=== PATIENT | male | born 1980 | race Caucasian/White ===

== ENCOUNTER 2018-10-10 15:41 | Emergency (ER) | payer OTHER, SELFPAY ==
[2018-10-10 15:44] VITALS: BP 120/92; PULSE 55; RESP 14; TEMP 36.7; O2SAT 98
--- NOTE | 2018-10-10 15:54 | ED.GENADUL_ITS ---
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 Denies hitting head or falling. Has a 1cm superficial skin tear of the right distal thumb just inferior to the nailbed. Bleeding crontrolled prior to arrival, has full rom and sensation intact. Closed with dermabond, will d/c home Differential Diagnosis abrasion, lac HPI General Mode of arrival: ambulatory . Date/Time Provider Initiated Documentation: 10/10/18 15:44 . Limitations to Documentation: no limitations . Information obtained by: patient . History of Present Illness 38 year old M presents to the emergency department with the chief complaint of right thumb injury, described as moderate, and is localized to the right and upper extremity. Patient reports no radiation. and it has been constant. Rest improves symptom(s), Movement worsens symptoms . Patient notes no other symptoms.. Related Data Home Medications Medication Instructions Recorded Confirmed Unknown [No Known Home Meds] 01/22/13 10/10/18 Allergies Allergy/AdvReac Type Severity Reaction Status Date / Time Penicillins Allergy Anaphylaxsi Unverified 10/10/18 15:47 s General Stated Complaint: Laceration SARWAT: 4 Review of Systems Review of Systems All systems reviewed & are unremarkable except as noted in HPI and below Constitutional Denies chills and Denies fever(s) Cardiovascular Denies dyspnea Respiratory Denies cough and Denies dyspnea Gastrointestinal Denies abdominal pain, Denies nausea and Denies vomiting Integumentary/Breasts Denies rash COUNTS INCLUDE 234 BEDS AT THE [facility] Social History Smoking/Tobacco Use Status: Current every day Drug use: Occasionally Do you feel safe at home: Yes Do you feel safe in your relationship?: Yes Exam Const General: no acute distress Orientation: alert HENWA Head: normal to inspection Ears: external ears normal General nose exam: external nose normal Mouth: moist mucous membranes Eyes General: appearance normal, both eyes and all related structures Neck Neck: normal visual inspection Resp Effort & Inspection: normal respiratory effort and able to speak in complete sentences Cardio Rate: regular rate Skin General skin exam: no rashes or lesions noted Neuro General: alert and oriented x3 Extrem General: full ROM and normal capillary refill Psych Mental Status: mental status grossly normal Course Vital Signs Temperature 36.7 C 10/10/18 15:44 Pulse 55 L 10/10/18 15:44 Respiratory Rate 14 10/10/18 15:44 Blood Pressure 120/92 H 10/10/18 15:44 Pulse Oximetry 98 10/10/18 15:44 Temperature 36.7 C 10/10/18 15:44 Temperature Source Temporal Artery Scan 10/10/18 15:44 Pulse 55 L 10/10/18 15:44 Respiratory Rate 14 10/10/18 15:44 Respiratory Effort Non-Labored 10/10/18 15:46 Blood Pressure 120/92 H 10/10/18 15:44 Blood Pressure Position Sitting 10/10/18 15:44 Pulse Oximetry 98 10/10/18 15:44 Oxygen Delivery Method Room Air 10/10/18 15:44 Oxygen Flow Rate 0 10/10/18 15:44 Pain Level 3 10/10/18 15:44 Procedures Laceration Laceration 1: Site: hand Side (If applicable): right Size (cm): 1 Description: linear Depth: simple, single layer Pre-repair: irrigated extensively Skin layer closed with: other (skin adhesive)
== END 2018-10-10 16:15 | disposition home or self-care (01) ==
LOC: ER 16:14
PROVIDERS: Emergency Provider Emergency Medicine; PCP Internal Medicine
DX: S61.011A Laceration without foreign body of right thumb without damage to nail, initial encounter (principal); W31.82XA Contact with other commercial machinery, initial encounter
CPT/HCPCS: 12001; 90471

== ENCOUNTER 2020-03-10 11:59 | Emergency (ER) | payer BC, SELFPAY ==
[2020-03-10 12:05] VITALS: BP 131/74; PULSE 65; RESP 16; TEMP 36.7; O2SAT 97
--- NOTE | 2020-03-10 12:28 | ED.GENADUL_ITS ---
Discharge Plan Disposition Patient Disposition: HOME Condition: Stable Discharge Details Chief Complaint: DentalOral Clinical Impression: Dental infection Primary Care Provider: Dillon Guy ED Provider: Robin Mehta Home Meds and New Rx's Prescriptions: New amoxicillin 875 mg tablet 875 mg PO BID 10 Days Qty: 20 RF: 0 Discharge Instructions Instructions: Dental Abscess (ED) Additional Instructions: Amoxicillin as directed. [id number] medication as directed for symptomatic control. Cool and/or warm compresses every 2 hours for 20 minutes. Please watch for new or worsening symptoms and return to the ER for any concerns. Using the dental list, contact dentist on Wednesday for prompt outpatient reevaluation Medical Decision Making 40-year-old gentleman with baseline poor dentition presents after injuring his tooth 2 nights ago. Requesting antibiotics. Tooth #12 appears to be decayed- fractured to the gumline. No obvious pointing abscess. Patient appears well, nontoxic. Airway is patent, no obvious facial swelling. He is afebrile. I will provide antibiotics, recommend [id number] medication for symptomatic control, and will place give him the local dental list so he can call dentist on Wednesday to set up outpatient appointment. Encouraged to return to the ER for new or worsening symptoms. Medical Records Medical records reviewed: Yes I reviewed the patient's medical records. HPI General Mode of arrival: ambulatory . Date/Time Provider Initiated Documentation: 03/10/20 12:14 . Limitations to Documentation: no limitations . Information obtained by: patient . HPI Narrative: This is a 40-year-old gentleman who is a current smoker, presents reporting that he broke his left upper tooth a couple of months ago. Now reports mild pain, swelling, and is requesting antibiotics for a dental infection. He has been using [id number] medication with some relief. He does not have a local dentist. He denies fever, sore throat, ear pain, cough, chest pain. Related Data Home Medications Medication Instructions Recorded Confirmed amoxicillin 875 mg PO BID 10 Days #20 tab 03/10/20 Previous Rx's Medication Instructions Recorded amoxicillin 875 mg PO BID 10 Days #20 tab 03/10/20 Allergies Allergy/AdvReac Type Severity Reaction Status Date / Time Penicillins Allergy Anaphylaxsi Unverified 03/10/20 12:08 s General Stated Complaint: DentalOral SARWAT: 4 Review of Systems Constitutional Constitutional: Denies fever(s) ENT Ears, Nose, Mouth, and Throat: Denies neck pain and Denies sore throat Cardiovascular Cardiovascular: Denies chest pain and Denies dyspnea Respiratory Respiratory: Denies dyspnea Musculoskeletal Musculoskeletal: Denies neck pain Integumentary/Breasts Skin/Breast: Denies rash [facility] Social History Smoking/Tobacco Use Status: Current every day Drug use: Occasionally Do you feel safe at home: Yes Do you feel safe in your relationship?: Yes Exam Const General: cooperative, healthy appearing, comfortable and no acute distress Orientation: alert, awake and oriented x3 HENMT Head: normal to inspection, normocephalic and atraumatic Mouth: moist mucous membranes Teeth image: 1. Poor dentition throughout. Tooth #12 decayed-fractured to the gumline. There is diffuse mild local discomfort but there is no erythema, drainage, pointing abscess. Throat: posterior oropharynx normal Eyes Conjunctivae: conjunctivae normal Sclera: sclerae normal Neck Neck: normal visual inspection, full ROM, no lymphadenopathy, no meningeal signs, trachea midline, supple and nontender Resp Effort & Inspection: normal respiratory effort and able to speak in complete sentences Auscultation: clear to auscultation bilaterally Cardio Rate: regular rate Rhythm: regular rhythm Skin General skin exam: no rashes or lesions noted Neuro General: patient alert, patient awake, moves all extremities and no focal motor deficits Sensory Exam: no sensory deficits noted Psych Appearance: grossly normal Mental Status: mental status grossly normal Course Vital Signs Vital signs: Vital Signs Temperature 36.7 C 03/10/20 12:05 Pulse 65 03/10/20 12:05 Respiratory Rate 16 03/10/20 12:05 Blood Pressure 131/74 03/10/20 12:05 Pulse Oximetry 97 03/10/20 12:05 Temperature 36.7 C 03/10/20 12:05 Pulse 65 03/10/20 12:05 Respiratory Rate 16 03/10/20 12:05 Blood Pressure 131/74 03/10/20 12:05 Pulse Oximetry 97 03/10/20 12:05 Oxygen Delivery Method Room Air 03/10/20 12:05 Oxygen Flow Rate 0 03/10/20 12:05 Pain Level 2 03/10/20 12:05
== END 2020-03-10 12:37 | disposition home or self-care (01) ==
PROVIDERS: Emergency Provider Physician Assistant; PCP Internal Medicine
DX: K04.7 Periapical abscess without sinus (principal)
CPT/HCPCS: 99283